=== PATIENT | female | born 1960 | race Caucasian/White ===

== ENCOUNTER 2020-05-22 15:00 | Outpatient (CLI) | payer OTHER, SELFPAY ==
--- NOTE | 2020-05-22 15:11 | XR_ITS ---
WS: [id number] ABDOMEN Supine view of the abdomen CLINICAL INFORMATION: ABDOMINAL PAIN, LLQ ; DIVERTICULITIS ACUTE COMPARISON: None. FINDINGS: Normal bowel gas pattern. Scattered air and normal caliber small and large bowel. No significant aneta l distention. XR/XR abdomen 1V* [id number] IMPRESSION: Normal. No free air.
== END 2020-05-22 15:01 | disposition home or self-care (01) ==
LOC: RADWPI 15:02
PROVIDERS: Family Provider Electrodiagnostic Medicine; PCP Electrodiagnostic Medicine; Visit Provider Electrodiagnostic Medicine
DX: R10.32 Left lower quadrant pain (principal); K57.92 Diverticulitis of intestine, part unspecified, without perforation or abscess without bleeding
CPT/HCPCS: 74018

== ENCOUNTER 2020-06-13 08:26 | Outpatient (CLI) | payer OTHER, SELFPAY ==
--- NOTE | 2020-06-13 08:30 | CT_ITS ---
WS: [id number] CT ABDOMEN AND PELVIS WITH CONTRAST HISTORY: LEFT LOWER QUADRANT ABDOMINAL PAIN,ACUTE DIVERTICULITIS TECHNIQUE: Imaging performed of the abdomen and pelvis with IV contrast. Single phase imaging of the abdomen. Coronal and sagittal reformats are submitted. All CT scans at [facility] use at least one of these dose optimization techniques: automated exposure control; mA and/or kV adjustment per patient size (includes targeted exams where dose is matched to clinical indication); or iterativ e reconstruction. IV CONTRAST: Omnipaque 300; 95 mL IV. Oral contrast: Yes. DLP: 1163.71 mGycm COMPARISON: None available. Lower thorax: Chronic emphysematous changes at the lung bases. Heart is normal size. No hiatal hernia . Liver/biliary system: Normal size liver. There are several cysts within the liver. The largest is in the LEFT lobe measuring 18 mm. No solid mass. Portal vein is normal. Gallbladder: Normal. No gallstones or wall thickening. No pericholecystic fluid. Pancreas: Normal. Spleen: Normal. Adrenal glands: Normal. Right kidney: Normal size with no obstruction. Cortical cyst lower pole measures 8 mm. Left kidney: Normal. Aorta: Normal. Lymphadenopathy: None. Free fluid: None. GI tract: The appendix is not identified. No inflammatory changes in the RIGHT lower quadrant. No GI tract obstruction. No significant diverticular disease. Abdominal wall: Fat-containing umbilical hernia. Pelvis: Prior hysterectomy. Urinary bladder is negative. No free fluid or adenopathy. Bones: Unremarkable. CT/CT abdomen pelvis w con* [id number] IMPRESSION: 1. No evidence for diverticulosis or diverticulitis. 2. Hepatic cysts. 3. Appendix not identified. 4. No adenopathy or ascites.
[2020-06-13] MEDS: iohexol 300 mg/mL 50 mL Btl PO (08:45)
[2020-06-13] MEDS: iohexol 300 mg/mL 100 mL Btl IV (10:24)
== END 2020-06-13 08:27 | disposition home or self-care (01) ==
LOC: RADWPI 08:31
PROVIDERS: Family Provider Electrodiagnostic Medicine; PCP Electrodiagnostic Medicine; Visit Provider Electrodiagnostic Medicine
DX: R10.32 Left lower quadrant pain (principal); K57.92 Diverticulitis of intestine, part unspecified, without perforation or abscess without bleeding; K76.89 Other specified diseases of liver
CPT/HCPCS: 74177; Q9967

== ENCOUNTER 2020-06-17 02:23 | Emergency (ER) | payer OTHER, SELFPAY ==
[2020-06-17 02:27] VITALS: BP 154/91; PULSE 85; RESP 17; TEMP 36.7; O2SAT 96; BMI 26.7
[2020-06-17 02:35] VITALS: BP 151/105; PULSE 80; RESP 16; O2SAT 96
--- NOTE | 2020-06-17 02:36 | W.ED.ABDPA2 ---
HPI - Abdominal Pain General: Chief Complaint: Abdominal Pain Stated Complaint: upper abd pain Time Seen by Provider: 06/17/20 02:30 Source: patient Mode of arrival: ambulatory Limitations: no limitations History of Present Illness: HPI narrative: 59-year-old female who states she has been having epigastric abdominal pain for 2 weeks. States pain is been sharp in nature and rates it a 6 out of 10. Patient has CT scan done 2 days ago which showed no acute findings and had normal gallbladder. She still concerned something is going on with her gallbladder. She denies any vomiting or diarrhea. She denies any fevers. MD elicited complaint: abdominal pain Pertinent past history: none Onset (ago): week(s) Pain Consistency: constant Location: Epigastric Severity: moderate Quality: cramping Radiation: back Exacerbating factors: nothing Relieving factors: nothing Associated Symptoms: Denies chills, dysuria and fever(s) Review of Systems Const: Denies: fever(s), chills, body aches or change in appetite Eyes: Denies: blurry vision or eye discomfort ENMT: Denies: throat pain or dental pain Card: Denies: chest pain Resp: Denies: dyspnea GI: Reports: abdominal pain : Denies: dysuria Musc: Denies: neck pain or back pain Skin/Breast: Denies: rash Neuro: Denies: headache(s) Psych: Denies: depression Harley/Lymph: Denies: easy bruising All/Imm: Denies: urticaria Course Vital Signs: Vital signs: Vital Signs Temperature 98.0 F 06/17/20 02:27 Pulse Rate 73 06/17/20 03:19 Respiratory Rate 16 06/17/20 03:19 Blood Pressure 130/82 06/17/20 03:19 Pulse Oximetry 97 06/17/20 03:19 MDM - Abdominal Pain MDM Narrative: Medical decision making narrative: Sissy presents here with abdominal pain is been going on for 2 weeks. Patient had recent CT scan that showed no acute findings. Patient's blood work here is normal including a normal white count and no signs of acute infection. We will set her up an appointment Dr. Coppola as patient likely needs a HIDA scan of her gallbladder. Patient prescribed hydrocodone. She is to return if worsening. Lab Data: Labs: Lab Results 06/17/20 06/17/20 Range/Units 02:42 02:42 WBC 8.6 (4.0-10.0) 10^3/ uL RBC 4.93 (4.1-5.3) 10^6/u L Hgb 13.9 (11.5-15.3) g/dL Hct 44.1 (37.0-47.0) % MCV 89.5 (81-99) fL MCH 28.2 (28.0-34.0) pg MCHC 31.5 (30.0-36.0) g/dL RDW 12.5 (12.1-15.1) % Plt Count 228 (130-400) 10^3/c mm MPV 10.6 H (7.4-10.4) fL Neut % (Auto) 45.0 % Lymph % (Auto) 36.6 % Loving % (Auto) 6.4 % Eos % (Auto) 11.0 % Baso % (Auto) 0.8 % Neut # (Auto) 3.86 (1.8-7.7) 10^3/u L Lymph # (Auto) 3.1 (0.8-4.8) 10^3/u L Loving # (Auto) 0.6 (0.2-0.9) 10^3/u L Eos # (Auto) 0.9 H (0.0-0.8) 10^3/u L Baso # (Auto) 0.1 (0.0-0.1) 10^3/u L Nucleated RBC % (a uto) 0 % Nucleated RBCs # 0.0 /100WBC Sodium 139 (136-145) mmol/L Potassium 4.0 (3.5-5.1) mmol/L Chloride 105 (98-107) mmol/L Carbon Dioxide 25 (22-29) mmol/L Anion Gap 13.0 (5-19) BUN 12 (6-20) mg/dL Creatinine 0.8 (0.5-0.9) mg/dL GFR Calculation 73.7 L (90-130) mL/min Glucose 111 (65-115) mg/dL Calculated Osmolal ity 285 (285-295) mOsm/k g Calcium 9.7 (8.5-10.5) mg/dL Total Bilirubin 0.3 (0.15-1.2) mg/dL AST 22 (0-32) U/L ALT 17 (0-33) U/L Alkaline Phosphata se 76 (35-105) IU/L Total Protein 7.4 (6.6-8.7) g/dL Albumin 4.6 (3.5-5.2) g/dL Globulin 2.8 (1.3-4.6) g/dL Lipase 33 (13-60) U/L Discharge Plan Discharge Patient Disposition: Home Clinical Impression: Abdominal pain Qualifiers: Abdominal location: right upper quadrant Qualified Code(s): R10.11 - Right upper quadrant pain Condition: Stable Prescriptions: [place] 5-325 mg tablet 1 tab PO Q6H PRN (Reason: pain) Qty: 14 RF: 0 Zofran 4 mg tablet 4 mg PO QID PRN (Reason: nausea and vomiting) Qty: 14 RF: 0 Discharge Orders: Discharge Order (Routine); Ordered 06/17/20 Ordered By: Deep Blas Referrals: Pedro Coppola MD [Physician] - 1-3 days Sumeet Hook DO [Primary Care Provider] - Discharge Diet: Advance as tolerated Discharge Activity: Resume usual activity Patient Instructions: Abdominal Pain (ED) Coding Level of Care Code ED Safety Instruction Police Officer for Justino Todd
[2020-06-17] MEDS: sodium chloride 0.9% 1,000 ML 999 ML IV (02:47)
[2020-06-17 02:49] LABS: Basophils # 0.1 10^3/uL (0.0-0.1); Basophils % 0.8 %; Eosinophils # 0.9 10^3/uL (0.0-0.8); Hematocrit 44.1 % (37.0-47.0); Hemoglobin 13.9 g/dL (11.5-15.3); Lymphocytes # 3.1 10^3/uL (0.8-4.8); Lymphocytes % 36.6 %; Mean Corpuscular HGB Conc 31.5 g/dL (30.0-36.0); Mean Corpuscular Hemoglobin 28.2 pg (28.0-34.0); Mean Corpuscular Volume 89.5 fL (81-99); Mean Platelet Volume 10.6 fL (7.4-10.4); Monocytes # 0.6 10^3/uL (0.2-0.9); Monocytes % 6.4 %; Neutrophils # 3.86 10^3/uL (1.8-7.7); Nucleated Red Blood Cells % 0 %; Platelet Count 228 10^3/cmm (130-400); Red Blood Count 4.93 10^6/uL (4.1-5.3); Red Cell Distribution Width 12.5 % (12.1-15.1); White Blood Count 8.6 10^3/uL (4.0-10.0)
[2020-06-17 03:08] LABS: Alanine Aminotransferase 17 U/L (0-33); Albumin Level 4.6 g/dL (3.5-5.2); Alkaline Phosphatase 76 IU/L (35-105); Aspartate Amino Transferase 22 U/L (0-32); Blood Urea Nitrogen 12 mg/dL (6-20); Calcium 9.7 mg/dL (8.5-10.5); Carbon Dioxide 25 mmol/L (22-29); Chloride 105 mmol/L (98-107); Globulin 2.8 g/dL (1.3-4.6); Glomerular Filtration Rate 73.7 mL/min (90-130); Glucose 111 mg/dL (65-115); Lipase 33 U/L (13-60); Osmolality Calculated 285 mOsm/kg (285-295); Sodium 139 mmol/L (136-145); Total Bilirubin 0.3 mg/dL (0.15-1.2); Total Protein 7.4 g/dL (6.6-8.7)
[2020-06-17 03:15] VITALS: RESP 16; O2SAT 97
[2020-06-17] MEDS: morphine 4 mg/mL SDV 1 mL IM (03:15)
[2020-06-17] MEDS: ondansetron 2 mg/ML SDV 2 mL 4 MG IVP (03:15)
[2020-06-17 03:19] VITALS: BP 130/82; PULSE 73; RESP 16; O2SAT 97
[2020-06-17 04:00] VITALS: BP 119/77; PULSE 68; RESP 16; O2SAT 94
--- NOTE | 2020-06-20 08:47 | PC.SOCIAL ---
spoke with patient on 06/17/[address] Coppola. She wanted to speak with her PCP first Dr Hook and see if he recommends seeing Dr Coppola or one of our surgeons and mentioned provider had planned on doing an US as well. Patient returned call this am and Dr Hook will schedule US and initiate any further orders once this has been reviewed. Patient appreciate the willingness to help.
== END 2020-06-17 04:12 | disposition home or self-care (01) ==
PROVIDERS: Emergency Provider Emergency Medicine; PCP Electrodiagnostic Medicine
DX: R10.11 Right upper quadrant pain (principal)
CPT/HCPCS: 12345; 80053; 83690; 85025; 96361; 96372; 96374; 96375; 99282; 99283; J2270; J2405; J7030

== ENCOUNTER 2020-06-18 08:00 | Outpatient (CLI) | payer OTHER, SELFPAY ==
--- NOTE | 2020-06-18 08:06 | MM_ITS ---
WS: [id number] BILATERAL DIGITAL SCREENING MAMMOGRAM WITH CAD CLINICAL INFORMATION: SCREENING HISTORY: Screening mammogram. No current complaints. COMPARISON: TECHNIQUE: Bilateral CC and MLO. FINDINGS: The breast are composed of extremely dense tissue, which can limit the detection of small underlying mass lesions. No suspicious focal mass, asymmetry, calcifications, or architectural distortion. No ev idence of malignancy. Punctate calcifications. Lucent centered calcifications. MM/[place] [id number] IMPRESSION: BI-RADS: 2-Benign FOLLOW UP: 1 Year Follow-up Recommend return to annual screening mammography.
== END 2020-06-18 08:01 | disposition home or self-care (01) ==
LOC: RADSHAW 08:03
PROVIDERS: PCP Electrodiagnostic Medicine; Visit Provider Electrodiagnostic Medicine
DX: Z12.31 Encounter for screening mammogram for malignant neoplasm of breast (principal)
CPT/HCPCS: 77067

== ENCOUNTER 2020-06-21 07:47 | Outpatient (CLI) | payer OTHER, SELFPAY ==
--- NOTE | 2020-06-21 07:51 | US_ITS ---
WS: [id number] Complete ABDOMINAL ULTRASOUND HISTORY: HEPATIC CYST COMPARISON: 04/01/2011. CT abdomen 06/13/2020 Liver: 14.2 cm in length. Normal size liver. There are several small hepatic cysts in the LEFT lobe. The largest measures 2.3 x 1.3 x 2.4 cm. No bile duct dilatation. Gallbladder: Normally distended with no gallstones, wall thickening or pericholecystic fluid. Gallbladder wall thickness: 0.2 cm. Pancreas: Normal size and echogenicity. CBD: 0.3 cm. Right kidney: 10.5 cm x 5.5 cm x 5.7 cm. No mass, cortical thickening or hydronephrosis. Left kidney: 10.5 cm x 4.9 cm x 4.2 cm. No mass, cortical thickening or hydronephrosis. Spleen: Normal size and echogenicity. Abdominal aorta and IVC are within normal limits. No ascites. US/US abdomen complete* [id number] IMPRESSION: 1. Small hepatic cysts. No solid mass. 2. Normal gallbladder.
== END 2020-06-21 07:48 | disposition home or self-care (01) ==
LOC: US 07:47
PROVIDERS: PCP Electrodiagnostic Medicine; Visit Provider Electrodiagnostic Medicine
DX: R10.32 Left lower quadrant pain (principal); K76.89 Other specified diseases of liver
CPT/HCPCS: 76700

== ENCOUNTER 2020-06-27 07:28 | Outpatient (CLI) | payer OTHER, SELFPAY ==
--- NOTE | 2020-06-27 07:31 | NM_ITS ---
WS: [id number] NUCLEAR MEDICINE HIDA SCAN CLINICAL INFORMATION: RUQ ABDOMINAL PAIN/HEPATIC CYST/LLQ ABDOMINAL PAIN TECHNIQUE: Following intravenous administration of 8.0 mCi of technetium 99m mebrofenin, images of th e abdomen were obtained over the course of 60 minutes. Next, gallbladder ejection fraction was determ ined by obtaining preprandial and one-hour postprandial images of the gallbladder following oral soledad stion of Ensure. COMPARISON: None. FINDINGS: Normal hepatic uptake at 5 minutes. Normal common bile duct at 10 minutes. Gallbladder is visualized by 30 minutes. Normal small bowel activity. No evidence of acute cholecystitis. No evidence of choled ocholithiasis. Gallbladder ejection fraction 83% within normal limits. No evidence of chronic cholecystitis. NM/NM hepatobiliary w phar* [id number] IMPRESSION: 1. No evidence of acute or chronic cholecystitis. 2. Gallbladder ejection fraction 83% within normal limits.
== END 2020-06-27 07:29 | disposition home or self-care (01) ==
LOC: RAD 07:30
PROVIDERS: PCP Electrodiagnostic Medicine; Visit Provider Electrodiagnostic Medicine
DX: R10.11 Right upper quadrant pain (principal); K76.89 Other specified diseases of liver; R10.32 Left lower quadrant pain
CPT/HCPCS: 78227; A9537

== ENCOUNTER 2020-07-12 07:39 | Day surgery (SDC) | payer OTHER, SELFPAY ==
[2020-07-12 08:01] VITALS: BP 134/86; PULSE 78; RESP 18; TEMP 36.7; O2SAT 98; BMI 26.6
[2020-07-12] MEDS: sodium chloride 0.9% 1,000 ML 30 ML IV (08:03)
--- NOTE | 2020-07-12 08:22 | ANES.PREANE2 ---
Pre-Anesthetic Assessment Pre-Anesthetic Assessment: Height/Weight: Height 1.75 m Weight 81.647 kg Temp Pulse Resp BP Pulse Ox 98.0 F 78 18 134/86 98 07/12/20 08:01 07/12/20 08:01 07/12/20 08:01 07/12/20 08:01 07/12/20 08:01 Preop Diagnosis: epigastric pain Proposed Procedure: Operation Date: 07/12/20 08:30 Proposed Procedures p EGD(Not Applicable) - Pedro Coppola MD Familial anesthetic complications: none Was Beta Marti taken within 24 hours: N/A Last intake: Intake Last Liquid Date 07/11/20 Last Liquid Time 19:30 Last Solid Date 07/11/20 Last Solid Time 19:30 Social: Social History: Alcohol and No tobacco Exam: Pre-Anes Outpt Exam: alert, oriented x 3, clear to auscultation bilaterally and regular rate & rhythm Airway: Submandibular: WNL Cervical ROM: WNL MP: 1 Dentition: Full Pulmonary: Pulmonary: None reported CV/HEM: CV/HEM: None reported : : None reported Hepatic: Hepatic: None reported GI: GI: GERD (controlled) Metabolic: Metabolic: None reported Musc/skel: Musc/skel: None reported Neuropsych: Neuropsych: None reported Anesthetic Plan: ASA status: 1 Anesthesia: MAC Risk of > 500 ml blood loss (7ml/kg in children): No Meds/Allergies Current Medications: Current Medications Generic Name Dose Route Start Last Admin Trade Name Freq PRN Reason Stop Dose Admin Sodium Chloride 1,000 mls @ 30 ml s/hr 07/12/20 08:00 07/12/20 08:03 Sodium Chloride 0.9% IV 07/13/20 07:59 30 mls/hr .Q24H LORNE Administration Data Anesthesia Cardiac Studies: No Data to Display
--- NOTE | 2020-07-12 08:25 | W.PM.OPSUD ---
Surgery/Procedure H&P Update DATE OF PROCEDURE: July 12, 2020 DATE H&P PERFORMED: 07/10/20 H&P UPDATE INFORMATION: No changes to prior documentation PREOP DIAGNOSIS: epigastric pain PLANNED PROCEDURE: Operation Date: 07/12/20 08:30 Proposed Procedures p EGD(Not Applicable) - Pedro Cpopola MD
[2020-07-12 08:37] VITALS: BP 106/70; PULSE 85; RESP 18; TEMP 36.4; O2SAT 93
--- NOTE | 2020-07-12 08:38 | ANE.PACU2 ---
Inpatient post-anesthesia follow up: Airway intact: Yes Vital signs: Temperature 98.0 F Pulse Rate 78 Respiratory Rate 18 Blood Pressure 134/86 Pulse Oximetry 98 Oxygen Delivery Me thod Room Air Oxygen Flow Rate Fraction of Inspir ed Oxygen Hydration adequate: Yes Nausea and vomiting: No Pain level: 1 Mental status: Baseline
[2020-07-12 09:00] VITALS: BP 117/74; PULSE 70; RESP 18; O2SAT 96
== END 2020-07-12 09:05 | disposition home or self-care (01) ==
PROVIDERS: PCP Electrodiagnostic Medicine; Visit Provider Surgery
PROC: 0DJ08ZZ Inspection of Upper Intestinal Tract, Via Natural or Artificial Opening Endoscopic (ICD-10-PCS; CPT 43235; principal; 2020-07-12 08:30)
DX: R10.13 Epigastric pain (principal); R14.0 Abdominal distension (gaseous); K21.9 Gastro-esophageal reflux disease without esophagitis; Z87.891 Personal history of nicotine dependence
CPT/HCPCS: 12345; 43235; J2704

== ENCOUNTER → 2020-07-24 12:07 | Outpatient (BNVA) | payer OTHER, SELFPAY | PROVIDERS: PCP Electrodiagnostic Medicine; Visit Provider Internal Medicine | DX: Z11.59 Encounter for screening for other viral diseases (principal) | CPT/HCPCS: 87635 ==

== ENCOUNTER 2020-07-26 07:16 | Day surgery (SDC) | payer OTHER, SELFPAY ==
[2020-07-25 09:15] VITALS: BMI 26.6
[2020-07-26] VITALS (9 sets, daily range): BP systolic 114–143; BP diastolic 68–88; PULSE 71–99; RESP 15–24; TEMP 36.1–36.6; O2SAT 94–97
[2020-07-26] MEDS: sodium chloride 0.9% 1,000 ML 30 ML IV (07:39)
--- NOTE | 2020-07-26 07:56 | ANES.PREANE2 ---
Pre-Anesthetic Assessment Pre-Anesthetic Assessment: Height/Weight: Height 1.75 m Weight 81.647 kg Temp Pulse Resp BP Pulse Ox 98 F 87 18 140/88 96 07/26/20 07:29 07/26/20 07:29 07/26/20 07:29 07/26/20 07:29 07/26/20 07:29 Preop Diagnosis: epigastric pain Proposed Procedure: Operation Date: 07/26/20 08:40 Proposed Procedures p Laparoscopic Cholecystectomy(Not Applicable) - Pedro Coppola MD Familial anesthetic complications: PONV Was Beta Marti taken within 24 hours: N/A Last intake: Intake Last Liquid Date 07/25/20 Last Liquid Time 20:00 Last Solid Date 07/25/20 Last Solid Time 20:00 Social: Social History: No alcohol and No tobacco Exam: Pre-Anes Outpt Exam: alert, oriented x 3, clear to auscultation bilaterally and regular rate & rhythm Airway: Cervical ROM: WNL MP: 3 Dentition: Full GI: GI: GERD Anesthetic Plan: ASA status: 1 Anesthesia: General Risk of > 500 ml blood loss (7ml/kg in children): No Meds/Allergies Current Medications: Current Medications Generic Name Dose Route Start Last Admin Trade Name Freq PRN Reason Stop Dose Admin Sodium Chloride 1,000 mls @ 30 ml s/hr 07/26/20 07:30 07/26/20 07:39 Sodium Chloride 0.9% IV 07/27/20 07:29 30 mls/hr .Q24H LORNE Administration Data Anesthesia Cardiac Studies: No Data to Display
[2020-07-26] MEDS: scopolamine 1.5 Patch 1 PATCH TRANSDERMA (08:02)
--- NOTE | 2020-07-26 08:30 | W.PM.OPSUD ---
Surgery/Procedure H&P Update DATE OF PROCEDURE: July 26, 2020 DATE H&P PERFORMED: 07/17/20 H&P UPDATE INFORMATION: No changes to prior documentation PREOP DIAGNOSIS: epigastric pain PLANNED PROCEDURE: Operation Date: 07/26/20 08:40 Proposed Procedures p Laparoscopic Cholecystectomy(Not Applicable) - Pedro Coppola MD
[2020-07-26 08:42] LABS: Alanine Aminotransferase 15 U/L (0-33); Albumin Level 4.6 g/dL (3.5-5.2); Alkaline Phosphatase 94 IU/L (35-105); Globulin 2.8 g/dL (1.3-4.6); Total Bilirubin 0.5 mg/dL (0.15-1.2); Total Protein 7.4 g/dL (6.6-8.7)
[2020-07-26 08:51] LABS: Aspartate Amino Transferase 19 U/L (0-32)
--- NOTE | 2020-07-26 09:17 | SUR.OPER ---
family updated of surgical status
--- NOTE | 2020-07-26 09:30 | PM.OP ---
Operative Report Date of procedure: July 26, 2020 Pre-op Diagnosis: Chronic cholecystitis. Post-op diagnosis: same Procedure Done: Laparoscopic cholecystectomy. Specimens removed/disposition: Gallbladder. Surgeon: Pedro Coppola Anesthesia: General Estimated blood loss (mL): 5 Complications: None. Condition: stable Disposition: PACU Procedure: The patient was brought to the Operating Room and was placed in a supine position on the Operating Room table. General endotracheal anesthesia was induced. The abdomen was prepped and draped in a sterile fashion. A small vertical incision was carried out in the inferior aspect/base of the umbilicus over her small umbilical hernia. Blunt dissection was carried out down to the fascia where the small hernia was identified. The preperitoneal fat coming from the defect was excised. A stay suture of 0 Vicryl was placed on either side of the midline and the hernia defect was simply elongated somewhat inferiorly. The underlying peritoneum was opened bluntly and the Mahamed port was placed directly into the peritoneal cavity and was held in place with the inflatable balloon. The peritoneal cavity was insufflated with carbon dioxide. The laparoscope was used to inspect the abdominal cavity. The patient had some light omental adhesions in the inferior right lower quadrant. No other gross abnormalities were initially noted. A 5 millimeter port was placed in the epigastrium under direct vision. Two 5-millimeter ports were placed on the right side of the abdomen under direct vision. The gallbladder was grasped and was elevated. The patient had some adhesions to the gallbladder fundus and infundibulum. These were all taken down using blunt dissection with some cautery to maintain hemostasis. Blunt dissection and hydrodissection were carried out in the infundibular region of the gallbladder and the cystic duct and cystic artery were identified. The gallbladder was partially removed from the liver bed using cautery and the spatula to confirm the anatomy before the structures were clipped and divided. The gallbladder was then removed from the liver bed using cautery and the spatula. A small hole was inadvertently made in the gallbladder during the dissection and some bile leaked from the gallbladder, but no stones were ever seen, consistent with the patient's preoperative imaging. The bile was quickly retrieved with suction. After the gallbladder had been removed from the liver bed, the laparoscope was moved to the epigastric port and the gallbladder was removed from the peritoneal cavity through the umbilical port site. The stay sutures of Vicryl were tied to each other at the umbilicus, closing the previous hernia defect defect/fascial incision so that it was airtight. The perihepatic spaces were irrigated with saline and the liver bed was reinspected. No ongoing problems were seen. The remaining ports were removed from the abdominal wall and the pneumoperitoneum was evacuated. All skin incisions were closed using inverted interrupted sutures of 4-0 Vicryl. Benzoin and Steri-Strips were placed over the incisions and Band-Aids followed. The patient was taken to the Recovery Area in stable condition postoperatively.
--- NOTE | 2020-07-26 10:20 | ANE.PACU2 ---
Inpatient post-anesthesia follow up: Airway intact: Yes Vital signs: Temperature 97.0 F Pulse Rate 78 Respiratory Rate 18 Blood Pressure 114/77 Pulse Oximetry 96 Oxygen Delivery Me thod Room Air Oxygen Flow Rate Fraction of Inspir ed Oxygen Hydration adequate: Yes Nausea and vomiting: No Pain level: 4 Mental status: Baseline
== END 2020-07-26 10:32 | disposition home or self-care (01) ==
PROVIDERS: PCP Electrodiagnostic Medicine; Visit Provider Surgery
PROC: 0FT44ZZ Resection of Gallbladder, Percutaneous Endoscopic Approach (ICD-10-PCS; CPT 47562; principal; 2020-07-26 08:40)
DX: K81.1 Chronic cholecystitis (principal); Z87.891 Personal history of nicotine dependence
CPT/HCPCS: 47562; 12345; 36415; 80076; 88304; J0690; J1100; J1885; J2405; J2550; J2704; J2710; J2765; J3010; J3490; J7030

== ENCOUNTER → 2020-09-04 10:54 | Outpatient (BNVA) | payer OTHER, SELFPAY | PROVIDERS: PCP Electrodiagnostic Medicine; Visit Provider Nurse Practitioner Family | DX: J06.9 Acute upper respiratory infection, unspecified (principal) | CPT/HCPCS: 87635 ==

== ENCOUNTER 2021-09-30 11:29 | Outpatient (CLI) | payer OTHER, SELFPAY ==
--- NOTE | 2021-09-30 11:36 | XR_ITS ---
WS: [id number] Exam: XR KUB [id number] Date/Time of Exam: 09/30/2021 11:36 AM Reason For Exam: LEFT FLANK PAIN/LUQ ABDOMINAL PAIN Comparison 05/22/2020. No bowel obstruction or free air. No sign of organ enlargement. Signs of prior cholecystectomy. Regio nal bony elements appear normal. XR/XR KUB [id number] IMPRESSION: 1. No acute abdominal finding. Negative.
== END 2021-09-30 11:30 | disposition home or self-care (01) ==
LOC: RAD 11:31
PROVIDERS: PCP Electrodiagnostic Medicine; Visit Provider Electrodiagnostic Medicine
DX: R10.12 Left upper quadrant pain (principal)
CPT/HCPCS: 74018

== ENCOUNTER 2021-10-18 07:32 | Outpatient (CLI) | payer OTHER, SELFPAY ==
--- NOTE | 2021-10-18 07:44 | US_ITS ---
WS: [id number] ULTRASOUND RENAL TECHNIQUE: Ultrasound examination of both kidneys. CLINICAL INFORMATION: RENAL COLIC/LUQ ABD PAIN COMPARISON: None. FINDINGS: RIGHT: Right renal parenchymal calcification or calculus measuring 8 x 9 mm. No obstruction. Right kidney is normal in size and appearance. Echogenicity: Normal. Cortical thickness: 1.1 cm; Normal. Hydronephrosis: None. Perinephric fluid: None. Right kidney measures: 11.3 cm x 4.2 cm x 4.9 cm. LEFT: Left kidney is normal in size and appearance. Echogenicity: Normal. Cortical thickness: 1.1 cm; Normal. Hydronephrosis: None. Perinephric fluid: None. Left kidney measures: 11.7 cm x 3.7 cm x 3.8 cm. Normal visualized aorta. Bladder decompressed US/US renal BI* [id number] IMPRESSION: 1. Right renal parenchymal calcification or calculus measuring 8 x 9 mm. No ob struction. 2. Otherwise normal renal ultrasound
== END 2021-10-18 07:33 | disposition home or self-care (01) ==
LOC: RAD 07:35
PROVIDERS: PCP Electrodiagnostic Medicine; Visit Provider Electrodiagnostic Medicine
DX: R10.12 Left upper quadrant pain (principal)
CPT/HCPCS: 76770

== ENCOUNTER 2021-10-28 09:27 | Outpatient (CLI) | payer OTHER, SELFPAY ==
--- NOTE | 2021-10-28 09:31 | CT_ITS ---
WS: [id number] CT ABDOMEN PELVIS TECHNIQUE: Contrast-enhanced CT of the abdomen and pelvis with coronal and sagittal reformatted image s. CLINICAL INFORMATION: L FLANK PAIN/LUQ ABD PAIN/HEPATIC CYST COMPARISON: CT June 13, 2020 DLP: 1677.[address] scans at [facility] use at least one of these dose optimization techniques: automated e xposure control; mA and/or kV adjustment per patient size (includes targeted exams where dose is matc hed to clinical indication); or iterative reconstruction. FINDINGS: Lung bases are well aerated. Stable simple hepatic cysts largest measuring 19 mm left hepatic lobe. M ild diffuse fatty infiltration liver. Normal portal vein and splenic vein. Prior cholecystectomy. Nor mal GE junction. Normal spleen. Adrenal glands are normal. Normal renal parenchymal enhancement. No h ydronephrosis. Small right renal cyst measuring 9 mm. Normal pancreatic parenchymal enhancement. Norm al portal vein and splenic vein. No obstructing renal or ureteral calculi. Diverticulosis. No evidence of acute diverticulitis. No evidence of small or large bowel obstruction. Normal appendix in the right lower quadrant. Tiny fat-containing inguinal hernia. CT/CT abdomen pelvis w con* [id number] IMPRESSION: 1. Diverticulosis. No evidence of acute diverticulitis. 2. Stable simple hepatic cysts. 3. No hydronephrosis in either kidney. Small simple renal cysts. 4. Prior cholecystectomy. 5. No other significant findings.
[2021-10-28] MEDS: iohexol 300 mg/mL 100 mL Btl IV (09:50)
== END 2021-10-28 09:28 | disposition home or self-care (01) ==
LOC: RAD 09:28
PROVIDERS: PCP Electrodiagnostic Medicine; Visit Provider Electrodiagnostic Medicine
DX: N23 Unspecified renal colic (principal); K76.89 Other specified diseases of liver; N20.0 Calculus of kidney; Z90.49 Acquired absence of other specified parts of digestive tract; K57.90 Diverticulosis of intestine, part unspecified, without perforation or abscess without bleeding
CPT/HCPCS: 74177

== ENCOUNTER 2021-10-29 06:59 | Outpatient (CLI) | payer OTHER, SELFPAY ==
--- NOTE | 2021-10-29 07:06 | XR_ITS ---
WS: [id number] XR KUB [id number] REASON FOR EXAM: KIDNEY STONE FINDINGS: No urinary tract calculi identified. Normal bowel gas pattern. No free air or retroperitoneal air. No mass identified. XR/XR KUB [id number] IMPRESSION: No significant abnormality.
== END 2021-10-29 07:00 | disposition home or self-care (01) ==
LOC: RAD 07:00
PROVIDERS: PCP Electrodiagnostic Medicine; Visit Provider Urology
DX: N20.0 Calculus of kidney (principal)
CPT/HCPCS: 74018; 81003

== ENCOUNTER → 2023-02-23 14:01 | Outpatient (BNVA) | payer OTHER, SELFPAY | PROVIDERS: PCP Electrodiagnostic Medicine; Visit Provider Urology | DX: N39.0 Urinary tract infection, site not specified (principal) | CPT/HCPCS: 81003 ==

== ENCOUNTER → 2024-12-23 16:20 | Outpatient (BNVA) | payer OTHER, SELFPAY | PROVIDERS: PCP Electrodiagnostic Medicine; Visit Provider Nurse Practitioner Women's Health | DX: Z78.0 Asymptomatic menopausal state (principal) | CPT/HCPCS: 82306 ==

== ENCOUNTER 2025-01-25 14:10 | Outpatient (CLI) | payer OTHER, SELFPAY ==
--- NOTE | 2025-01-25 14:30 | XR_ITS ---
WS: [id number] SCREENING DEXA SCAN [facility] CLINICAL INFORMATION: Z78.0 - Asymptomatic menopausal state FINDINGS: The L1-L4 bone mineral density measures 1.110 g/cm2. This corresponds to a T score score of -0.6 and Z score of 0.2. Left femoral neck bone mineral density measures 1.054 g/cm2. This corresponds to a T score of 0.4 and Z score of 1.0. Right femoral neck bone mineral density measures 0.971 g/cm2. This corresponds to a T score -0.3of and Z score of 0.3. Mean femoral neck bone mineral density measures 1.013 g/cm2. This corresponds to a T score of 0.0 and Z score of 0.6. XR/XR DEXA axial skeleton* [id number] IMPRESSION: Normal bone mineralization. Patient's FRAX calculated 10 year probability for major osteoporotic fracture i s 7.4% and osteoporotic hip fracture is 0.4%.
== END 2025-01-25 14:11 | disposition home or self-care (01) ==
LOC: RAD 14:12
PROVIDERS: PCP Electrodiagnostic Medicine; Visit Provider Nurse Practitioner Women's Health
DX: Z78.0 Asymptomatic menopausal state (principal)
CPT/HCPCS: 77080

== ENCOUNTER 2025-01-26 09:40 | Outpatient (CLI) | payer OTHER, SELFPAY ==
--- NOTE | 2025-01-26 09:46 | MM_ITS ---
WS: [id number] BILATERAL 3D TOMOSYNTHESIS DIGITAL SCREENING MAMMOGRAPHY WITH CAD CLINICAL INFORMATION: SCREENING HISTORY: Screening mammogram. No current complaints. COMPARISON: 2020 TECHNIQUE: Bilateral CC and MLO views. FINDINGS: The breasts are composed of heterogeneous fibroglandular density tissue, which can limit the detection of small underlying mass lesions. No suspicious mass, asymmetry, calcifications, or architectural distortion. No evidence of malignancy. Incidental punctate and lucent centered calcifications. Secretory calcifications. MM/MM [facility] tomosynthesis [id number] IMPRESSION: DENSITY: The breasts are heterogeneously dense, which may obscure small masses. BI-RADS: 2 - Benign FOLLOW UP: 1 Year Follow-up Recommend return to annual screening mammography.
== END 2025-01-26 09:41 | disposition home or self-care (01) ==
LOC: RAD 09:45
PROVIDERS: PCP Electrodiagnostic Medicine; Visit Provider Electrodiagnostic Medicine
DX: Z12.31 Encounter for screening mammogram for malignant neoplasm of breast (principal); R92.333 Mammographic heterogeneous density, bilateral breasts; R92.1 Mammographic calcification found on diagnostic imaging of breast
CPT/HCPCS: 77063; 77067